=== PATIENT | female | born 1950 | race African-American/Black ===

== ENCOUNTER 2017-11-14 20:07 | Emergency (ER) | payer MEDICARE, OTHER ==
[~2017-11-14] VITALS: Ht 177.8 cm; Wt 77.5 kg
[2017-11-14] MEDS ORDERED: SODIUM CHLORIDE 0.9% 1,000 ML IV ONE (20:27)
[2017-11-14] MEDS ORDERED: FENTANYL CITRATE/PF 50MCG/ML 2ML VIAL IV ONE ×2 (20:30→22:30)
[2017-11-14 21:05] LABS: BASOPHILS % 0.7 % (0.0-2.0); HEMATOCRIT. 39.2 % (36.0-48.0); HEMOGLOBIN. 13.1 g/dL (12.0-16.0); LYMPHOCYTES % 15.5 % (20.0-50.0); MEAN CORPUSCULAR HEMOGLOBIN 30.1 pg (28.0-32.0); MEAN CORPUSCULAR VOLUME 90.1 fL (81.0-99.0); MEAN PLATELET VOLUME 8.3 fl (7.4-10.4); MONOCYTES % 4.8 % (2.0-8.0); PLATELET 308 x1000/uL (130-400); RED BLOOD CELL COUNT 4.35 mill/uL (4.2-5.4); RED CELL DISTRIBUTION WIDTH 14.6 % (11.6-14.6)
[2017-11-14 21:10] LABS: PROTHROMBIN TIME 10.5 sec (9.4-11.6)
[2017-11-14 21:15] LABS: CHLORIDE 104 mEq/L (98-107)
[2017-11-15] MEDS ORDERED: FENTANYL CITRATE/PF 50MCG/ML 2ML VIAL IV ONE
[2017-11-15] MEDS ORDERED: HYDROCODONE/ACETAMINOPHEN 10/325MG TABLET PO ONE (00:45)
[2017-11-15 01:21] VITALS: BP 151/77
== END 2017-11-15 01:22 | disposition home or self-care (01) ==
LOC: ER 20:20
DX: S82.892A Other fracture of left lower leg, initial encounter for closed fracture (principal); E87.2 Acidosis; H40.9 Unspecified glaucoma; Z96.641 Presence of right artificial hip joint; W10.8XXA Fall (on) (from) other stairs and steps, initial encounter; Y93.89 Activity, other specified; Y92.89 Other specified places as the place of occurrence of the external cause; Y99.8 Other external cause status
CPT/HCPCS: 29505; 36415; 71045; 72170; 73560; 73590; 73610; 73630; 80053; 83605; 84484; 85025; 85610; 93005; 96361; 96374; 96376; 99291; J3010; J7030